=== PATIENT | male | born 1990 | race African-American/Black ===

== ENCOUNTER 2017-04-19 14:53 | Emergency (ER) | payer BC ==
[2017-04-19 15:01] VITALS: BP 143/88
[2017-04-19] MEDS ORDERED: IBUPROFEN 800 MG TABLET PO ONE (16:06)
[2017-04-19] MEDS ORDERED: CEPHALEXIN 500 MG CAPSULE PO ONE (16:07)
--- NOTE | 2017-04-19 16:23 | ER Document Report ---
HPI - HPI Patient complains to provider of: Finger pain Pain Level: 4 Context: Patient is a 27-year-old male presents emergency department with left fourth digit pain. Admits to pain at this area for about 4 days. With swelling, tender to touch. Otherwise denies any fevers or chills, trauma. - DERM Skin Color: Normal Past Medical History - Social History Smoking Status: Never Smoker Family History: Reviewed & Not Pertinent Patient has suicidal ideation: No Patient has homicidal ideation: No Renal/ Medical History: Denies: Hx Peritoneal Dialysis Past Surgical History: Reports: Hx Orthopedic Surgery - right ankle - Immunizations Hx Diphtheria, Pertussis, Tetanus Vaccination: Yes Vertical Provider Document - CONSTITUTIONAL Agree With Documented VS: Yes Exam Limitations: No Limitations General Appearance: WD/WN, No Apparent Distress - INFECTION CONTROL TRAVEL OUTSIDE OF THE [place] IN LAST 30 DAYS: No - RESPIRATORY O2 Sat by Pulse Oximetry: 99 - CARDIOVASCULAR Pulses: Normal: Radial Notes: Capillary refill less than 2 seconds in all upper extremity digits - NEURO Level of Consciousness: Awake, Alert, Appropriate Motor/Sensory: No Motor Deficit, No Sensory Deficit - DERM Integumentary: Warm, Dry, No Rash Notes: Paronychia of the right fourth finger lateral to the nail bed. Course - Re-evaluation Re-evalutation: 04/19/17 20:20 Paronychia drained with an 18-gauge needle for possible was evacuated at the area. Patient initiated on antibiotics and told to follow-up with primary care as needed. - Vital Signs Vital signs: Temp Pulse Resp BP Pulse Ox 98.1 F 63 16 143/88 H 99 04/19/17 15:00 04/19/17 15:00 04/19/17 15:00 04/19/17 15:00 04/19/17 15:00 Discharge - Discharge Clinical Impression: Paronychia Condition: Good Disposition: HOME, SELF-CARE Instructions: Paronychia ([facility]), Cephalexin ([facility]), Use of Opaz-Jig-Kfmmxiu Ibuprofen ([facility]) Additional Instructions: Continue to soak your finger in Epsom salt and warm water to encourage drainage. 3-4 times a day Take antibiotics as prescribed. Prescriptions: Cephalexin Monohydrate [Keflex 500 mg Capsule] 500 mg PO QID 7 Days Forms: Elevated Blood Pressure, Return to Work Referrals: YESENIA SERNA MD [ACTIVE STAFF] - Follow up as needed
== END 2017-04-19 17:23 | disposition home or self-care (01) ==
LOC: ER 14:53
PROC: 0H9QXZZ Drainage of Finger Nail, External Approach (ICD-10-PCS; principal; 2017-04-19)
DX: L03.012 Cellulitis of left finger (principal); M79.645 Pain in left finger(s)
CPT/HCPCS: 99283

== ENCOUNTER 2017-07-05 22:31 | Emergency (ER) | payer OTHER, BC ==
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
--- NOTE | 2017-07-05 23:59 | RADIOLOGY REPORT (SQ) ---
EXAM DESCRIPTION: FINGER RIGHT COMPLETED DATE/TIME: 07/05/2017 11:44 pm REASON FOR STUDY: right middle finger injury COMPARISON: None. NUMBER OF VIEWS: Three views. TECHNIQUE: AP, lateral, and oblique images acquired of the right third finger. LIMITATIONS: None. FINDINGS: MINERALIZATION: Normal. BONES: 3.5 mm intra-articular fracture at the dorsal aspect of the 3rd distal phalanx, mallet type fr acture. No dislocation. No worrisome bone lesions. SOFT TISSUES: Mild soft tissue swelling. No foreign body. OTHER: No other significant finding. IMPRESSION: 3.5 mm intra-articular fracture at the dorsal aspect of the 3rd distal phalanx, mallet t ype fracture. COMMENT: SITE OF TRAUMA/COMPLAINT MARKED/STAMP COMPLETED: Yes TECHNICAL DOCUMENTATION: JOB ID: [id number] [employer]- All Rights Reserved
[2017-07-06 00:22] VITALS: BP 145/83
== END 2017-07-06 00:01 | disposition home or self-care (01) ==
LOC: ER 22:31
DX: S62.662A Nondisplaced fracture of distal phalanx of right middle finger, initial encounter for closed fracture (principal); W22.8XXA Striking against or struck by other objects, initial encounter; Y92.511 Restaurant or cafe as the place of occurrence of the external cause; Y99.0 Civilian activity done for income or pay; F17.200 Nicotine dependence, unspecified, uncomplicated
CPT/HCPCS: 99283

== ENCOUNTER 2020-03-27 08:20 | Emergency (ER) | payer BC, OTHER ==
[2020-03-27 08:26] VITALS: BP 143/78
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
--- NOTE | 2020-03-27 09:28 | RADIOLOGY REPORT (SQ) ---
EXAM DESCRIPTION: ANKLE RIGHT COMPLETE IMAGES COMPLETED DATE/TIME: 03/27/2020 9:08 am REASON FOR STUDY: injury COMPARISON: None. NUMBER OF VIEWS: Three views. TECHNIQUE: AP, lateral, and oblique radiographic images acquired of the right ankle. LIMITATIONS: None. FINDINGS: MINERALIZATION: Normal. BONES: Old distal fibular fracture status post plate and screw fixation. No acute fracture or disloc ation. No worrisome bone lesions. JOINTS: No effusions. SOFT TISSUES: No soft tissue swelling. No foreign body. OTHER: No other significant finding. IMPRESSION: NO RADIOGRAPHIC EVIDENCE OF ACUTE INJURY. TECHNICAL DOCUMENTATION: JOB ID: [id number] [employer]- All Rights Reserved Reading location - IP/workstation name: [email or web address]
== END 2020-03-27 09:49 | disposition home or self-care (01) ==
LOC: ER 08:20
DX: S93.491A Sprain of other ligament of right ankle, initial encounter (principal); V86.09XA Driver of other special all-terrain or other off-road motor vehicle injured in traffic accident, initial encounter; I10 Essential (primary) hypertension
CPT/HCPCS: 99283